=== PATIENT | female | born 1970 | race Caucasian/White ===

== ENCOUNTER → 2017-01-15 | Day surgery (SDC) | payer BC ==
[~2017-01-15] MED LIST: ACETAMINOPHEN 1000 MG/100 ML VIAL IV ONE; ACETAMINOPHEN/HYDROcodone 325 MG/5 MG TAB ONE; ALBU17I INH; BACT800T5 PO; BENA25TA8 PO; BUPIVACAINE/EPINEPHRINE 0.5% PF 10 ML VIAL ONE; FLOV110A IN; LACTATED RINGER'S 1000 ML INJ 1,000 ML ONE; LORA10TA PO; MIDAZOLAM HCL 2 MG/2 ML VIAL ONE; ONDANSETRON HCL 4 MG/2 ML VIAL IV PUSH ONE; PREV30CA36 PO; PROPOFOL 200 MG/20 ML AMP IV ONE; RESP: ALBUTEROL 2.5 MG/3 ML NEB (SCH) ONE; RESP: SODIUM CHLORIDE 0.9% 5 ML NEB ONE; ceFAZolin 2 GM PREMIX 50 ML ONE; metroNIDAZOLE 500 MG INJ 100 ML IV ONE
--- NOTE | 2017-01-15 15:19 | TN ---
cc: ED ACOSTA M.D. DATE OF SURGERY: 01/15/2017 PREOPERATIVE DIAGNOSIS 1. Gallstones. 2. Biliary colic. POSTOPERATIVE DIAGNOSIS 1. Gallstones. 2. Biliary colic. PROCEDURE Laparoscopic cholecystectomy. SURGEON Dr. Ed Acosta ANESTHESIA General. [employer] Fina Cheung, MS III INDICATIONS This is a very pleasant 46-year-old woman who has had recurrent episodes of upper abdominal, midepigastric chest pain attacks that started more frequently when she recently was at her mother's in [place] where she ate different foods than normal and many different types of kelly. She went to the hospital while in [place] to rule out cardiac etiology and no cardiac etiology was discovered. She had a gallbladder ultrasound which showed gallstones but no gallbladder wall thickening. She has a long history of gastroesophageal reflux disease. We discussed options for treatment and she had increasing symptoms and therefore wished to proceed with surgical treatment. INTRAOPERATIVE FINDINGS A small amount of adhesions from the omentum to the inferior aspect of the gallbladder adjacent to the gallbladder cystic duct junction. Gallbladder and stone removed and sent to pathology. ESTIMATED BLOOD LOSS Minimal. DESCRIPTION OF PROCEDURE IN DETAIL The patient was identified as Alma Lamas, taken to the operating room and placed in the supine position. Following induction of adequate general endotracheal anesthesia the patient's abdomen was prepped and draped in the usual sterile fashion with ChloraPrep. A timeout procedure was performed. Following completion of the timeout procedure to everyone's satisfaction within the room, 0.5% Marcaine with epinephrine was placed at each incision site. Due to a probable tiny umbilical hernia defect a small curvilinear incision at the superior aspect of the umbilicus was carried out with a scalpel and dissection continued posteriorly. The umbilical skin was lifted off a small umbilical hernia defect which was opened more superiorly using a scalpel with anterior retraction with a Mohan clamp. This allowed for entry into the peritoneal cavity with the surgeon's finger. The [employer] balloon Gregg trocar was placed in the peritoneal cavity and its balloon inflated with CO2 insufflation until a level of 15 mmHg ensued. The patient was placed in a reverse Trendelenburg position turned slightly to the left and two upper abdominal 5 mm trocars were placed in the peritoneal cavity under direct laparoscopic view after incision of the skin with a scalpel. The gallbladder was immediately identified, retracted superiorly and anteriorly and small adhesions at the base of the gallbladder were identified. Photographs were taken. The gallbladder was removed from the gallbladder fossa in a dome-down technique using the Harmonic scalpel. The cystic artery was divided with the Harmonic scalpel. The cystic duct was isolated from surrounding tissues and ligated proximally and distally with 0 PDS Endoloops. The gallbladder was divided at its junction with the cystic duct between the Endoloops using the Harmonic scalpel. The gallbladder was removed from the peritoneal cavity through the umbilical defect and passed off the field for pathologic evaluation. The right upper quadrant was examined. There was no evidence of bilious or bloody drainage. The cystic duct ligature remained intact. The cystic arterial stump was hemostatic. Photographs were taken of the left lateral lobe of the liver which demonstrated mild changes of fatty infiltration. The remaining local anesthetic was placed in right upper quadrant. The trocars were removed under direct visualization. There was no evidence of bleeding from the trocar sites. The peritoneal cavity was then actively desufflated through the umbilical port which was then removed. The umbilical fascial incision was closed with interrupted inverted 0 Vicryl sutures. The umbilicus was reformed with interrupted 2-0 Vicryl. Skin was approximated with interrupted 4-0 Monocryl subcuticular sutures. Dressings were applied with Mastisol and half-inch brown Steri-Strips. Gauze and Tegaderm were placed over the umbilicus. The patient tolerated the procedure without apparent complication. Sponge, needle and instrument counts were correct at the end of the case. MD SINDY Herrera/RATNA /3:00 PM /3:09 PM
== END | disposition home or self-care (01) ==
LOC: ESDC 11:54
PROVIDERS: ATTEND Surgery Trauma Surgery
DX: K80.10 Calculus of gallbladder with chronic cholecystitis without obstruction (principal)
CPT/HCPCS: 00790; 47562; 88304; J0131; J0690; J2250; J2405; J3010; J7120; J7613